=== PATIENT | female | born 1985 | race Caucasian/White ===

== ENCOUNTER 2016-12-10 07:10 | Emergency (ER) | payer SELFPAY ==
[~2016-12-10 07:10] MED LIST: BACTRIM DS TABL1 TAB PO; IRON1 TAB; KEFLEX500 MG PO; MOTRIN800 MG PO; NO HOME MEDS; NORCO 7.5/325 T1 TAB PO; OXYCODONE/APAP PO; PRENATAL VITAMI1 TAB; PRENATAL1 EACH PO; TYLENOL #31 TAB PO; UNKNOWN MED
[2016-12-10] MEDS ORDERED: NORCO 5-325 TA1 EACH PO (07:50)
[2016-12-10] MEDS ORDERED: AMOXICILLIN500 M2 PO (07:50)
== END 2016-12-10 08:17 ==
LOC: EDMED 07:10
PROC: 0C9XXZ0 Drainage of Lower Tooth, External Approach, Single (ICD-10-PCS; principal; 2016-12-10)
DX: K04.7 Periapical abscess without sinus (principal); F17.200 Nicotine dependence, unspecified, uncomplicated